=== PATIENT | male | born 1965 | race Caucasian/White ===

== ENCOUNTER 2016-10-05 07:32 | Day surgery (SDC) | payer BC ==
[2016-10-02 11:26] VITALS: BMI 27.8
[~2016-10-05 07:32] MED LIST: LACTATED RINGERS 1,000 ML IV SCH
[2016-10-05 07:48] VITALS: TEMP 98.4
[2016-10-05] MEDS ORDERED: LIDOCAINE 1% 20 ML VIAL (10MG/ML) FOR IV START INTRADERMA ONE (07:58)
[2016-10-05] MEDS ORDERED: PROPOFOL 10 MG/ML 20 ML VIAL IV ONE (08:30)
[2016-10-05] MEDS ORDERED: LIDOCAINE 1% INJ 10MG/ML (20 ML MDV) ONE (08:30)
--- NOTE | 2016-10-05 08:50 | P.GSHP ---
History of Present Illness H&P Date: 10/05/16 Chief Complaint: GERD This a 51-year-old male who presents today for EGD. He's had issues with reflux. Patient has reflux of liquid stool back the throat. He's had GERD for several years. - Constitutional Constitutional: Reports as per HPI Past Medical History Past Medical History: GERD/Reflux, Hyperlipidemia, Hypertension Additional Past Medical History / Comment(s): "chest flutter" History of Any Multi-Drug Resistant Organisms: None Reported Past Surgical History: Orthopedic Surgery Additional Past Surgical History / Comment(s): rt ankle tendon repair Past Anesthesia/Blood Transfusion Reactions: No Reported Reaction Smoking Status: Never smoker Past Alcohol Use History: Occasional Past Drug Use History: None Reported - Past Family History Father Family Medical History: Cancer Additional Family Medical History / Comment(s): prostate Medications and Allergies Home Medications Medication Instructions Recorded Confirmed Type Aspirin [Adult Low Dose Aspirin EC] 81 mg PO DAILY 10/02/16 10/05/16 History Cholecalciferol [Vitamin D3] 1,000 unit PO DAILY 10/02/16 10/05/16 History amLODIPine/ATORVASTATIN [Caduet 5 1 tab PO HS 10/02/16 10/05/16 History mg-10 mg Tablet] Allergies Allergy/AdvReac Type Severity Reaction Status Date / Time No Known Allergies Allergy Verified 10/05/16 07:43 Surgical - Exam Vital Signs Temp Pulse Resp BP Pulse Ox 98.4 F 89 16 142/90 97 10/05/16 07:38 10/05/16 07:38 10/05/16 07:38 10/05/16 07:38 10/05/16 07:38 - General well developed, no distress - Eyes PERRL - ENT normal pinna - Neck no masses - Respiratory normal expansion - Cardiovascular Rhythm: regular - Abdomen Abdomen: soft, non tender Assessment and Plan Plan: GERD. We will perform EGD
--- NOTE | 2016-10-05 08:57 | P.OP ---
Date of Procedure: 10/05/16 Preoperative Diagnosis: GERD Postoperative Diagnosis: Antral gastritis No evidence of hiatal hernia Esophagitis Procedure(s) Performed: EGD Anesthesia: MAC Surgeon: Kenji Ta Pathology: other (Antrum, esophagus) Condition: stable Disposition: PACU Description of Procedure: The patient's placed on the endoscopy table in the lateral position. She received IV sedation. The gastroscope some placed oropharynx passed into the esophagus and stomach. The scope was then placed through the pylorus. The first and second portion of duodenum. Normal. Scope was then brought back the antrum and this appeared mildly inflamed. A biopsies was performed. The scope was unretroflexed and remainder of the stomach appeared normal. The GE junction was at 40 cm. There was no significant hiatal hernia. The distal esophagus appeared inflamed and this area is biopsied the proximal esophagus appeared normal. Scope was withdrawn for patient.
[2016-10-05 09:04] VITALS: RESP 18
[2016-10-05 09:19] VITALS: BP 140/85; PULSE 77
== END 2016-10-05 09:35 | disposition home or self-care (01) ==
LOC: ORWHC2ENDO 07:32
PROVIDERS: ATTEND Surgery
DX: K21.0 Gastro-esophageal reflux disease with esophagitis (principal); I10 Essential (primary) hypertension; E78.5 Hyperlipidemia, unspecified; Z79.82 Long term (current) use of aspirin; Z79.899 Other long term (current) drug therapy
CPT/HCPCS: 88305; 88342; 43239; J2001; J2704

== ENCOUNTER → 2024-05-27 | Outpatient (CLI) | payer BC ==
[2024-05-27 15:09] LABS: HCT 45.3 % (39.6-50.0); MCH 30.4 pg (27.0-32.0); MCHC 33.1 g/dL (32.0-37.0); MCV 91.7 FL (80.0-97.0); Mean Platelet Volume 10.3 FL (9.5-12.2); NRBC Per 100 WBC 0 X 10*3/uL (0.00-0.01); Platelet Count 218 X 10*3/uL (140-440); RBC 4.94 X 10*6/uL (4.40-5.60); RDW 12.3 % (11.5-14.5)
== END | disposition home or self-care (01) ==
LOC: LABPAT 07:58
PROVIDERS: ATTEND Surgery
DX: Z01.812 Encounter for preprocedural laboratory examination (principal); K42.9 Umbilical hernia without obstruction or gangrene; K40.90 Unilateral inguinal hernia, without obstruction or gangrene, not specified as recurrent
CPT/HCPCS: 85027

== ENCOUNTER 2024-05-28 10:42 | Day surgery (SDC) | payer BC ==
[2024-05-26 09:24] VITALS: BMI 27.8
[~2024-05-28 10:42] MED LIST changes: +HYDROmorphone 0.5 MG/0.5 ML SYRINGE IVP PRN; -LACTATED RINGERS 1,000 ML IV SCH; +LIDOCAINE 1% (10MG/ML) FOR IV START INTRADERMA PRN; +MIDAZOLAM 2 MG/2 ML VIAL IV PRN; +fentaNYL (PF) 50 MCG/ML 2 ML AMP IVP PRN
[2024-05-28] MEDS: IV FLUID CONTINUATION 1,000 ML IV ONE (11:13)
[2024-05-28 11:15] VITALS: TEMP 97
[2024-05-28] MEDS: ONDANSETRON 4 MG/2 ML VIAL IVP ONE (11:28)
[2024-05-28] MEDS: DEXAMETHASONE SOD PHOSPHATE 4 MG/ML 1 ML VIAL IV ONE (11:29)
[2024-05-28] MEDS: LACTATED RINGERS 1,000 ML IV SCH (11:29)
[2024-05-28] MEDS: FAMOTIDINE 20 MG/2 ML VIAL IV STA (11:30)
[2024-05-28] MEDS ORDERED: fentaNYL (PF) 50 MCG/ML 2 ML AMP ONE (12:04)
[2024-05-28] MEDS ORDERED: SUCCINYLCHOLINE CHLORIDE 200 MG/10 ML VIAL IV ONE (12:04)
[2024-05-28] MEDS ORDERED: NEOSTIGMINE 1 MG/ML 10 ML VIAL ONE (12:04)
[2024-05-28] MEDS ORDERED: KETOROLAC 15 MG/ML 1 ML VIAL ONE (12:04)
[2024-05-28] MEDS ORDERED: LIDOCAINE 1% INJ 10MG/ML (20 ML MDV) ONE (12:04)
[2024-05-28] MEDS ORDERED: KETAMINE HCL IN 0.9 % NACL 50 MG/5 ML SYRINGE ONE (12:04)
[2024-05-28] MEDS ORDERED: PROPOFOL 10 MG/ML 20 ML VIAL IV ONE (12:04)
[2024-05-28] MEDS ORDERED: GLYCOPYRROLATE 0.2 MG/ML 2 ML VIAL ONE (12:04)
[2024-05-28] MEDS ORDERED: ROCURONIUM 10 MG/ML (5 ML VIAL) IV ONE (12:04)
[2024-05-28] MEDS ORDERED: MIDAZOLAM 2 MG/2 ML VIAL ONE (12:04)
[2024-05-28] MEDS: LIDOCAINE 1%-EPI 1:100,000 20 ML VIAL SQ ONE (12:38)
[2024-05-28 15:07] VITALS: RESP 18
[2024-05-28 15:39] VITALS: BP 146/88; PULSE 81
--- NOTE | 2024-05-28 21:13 | P.OP ---
Date of Procedure: 05/28/24 Preoperative Diagnosis: Left inguinal hernia Umbilical hernia Postoperative Diagnosis: Left inguinal hernia Umbilical hernia Procedure(s) Performed: Robotic left inguinal hernia repair Open umbilical hernia repair, primary Implants: ProGrip inguinal mesh Anesthesia: GUI Surgeon: Ana Rush Pathology: none sent Condition: stable Disposition: same day Indications for Procedure: 58-year-old male presented to the surgery clinic with complaint of left groin bulge and umbilical bulge. He is found to have left inguinal hernia and umbilical hernia. He is having increased discomfort and increased size of the hernia. Plan is for robotic left inguinal hernia repair with open umbilical hernia repair. Risks, benefits and alternatives were provided to the patient. All questions answered. Operative Findings: Left inguinal hernia containing sigmoid colon Umbilical hernia, measuring 1 x 1 cm Description of Procedure: The patient was brought to the operating suite and placed in supine position. After general endotracheal anesthesia was induced, arms were tucked to the sides bilaterally and all pressure points were padded. SCDs were also placed in bilateral lower extremities. Timeout was performed. A supraumbilical incision was made approximately 20 cm superior to the pubic symphysis. The abdomen was then entered through the umbilical defect of the hernia that was noted. This hernia measured 1 x 1 cm and an 8 mm trocar was placed. Pneumoperitoneum was achieved. 2 additional incisions were made approximately 11 cm lateral to the supraumbilical incision and 8 mm trocars were placed. The patient was then placed in Trendelenburg position and the hernia site was clearly visualized on the left side. This was noted as an indirect inguinal hernia containing sigmoid colon. The robot was then docked appropriately. Incision was then made just lateral to the medial umbilical ligament on the left side with the monopolar scissors and peritoneal flap was created and was then taken down towards Martin's ligament. The flap was then extended laterally. Attention was then turned to the indirect inguinal hernia. The sac was then freed from the cord all while preserving the cord structures. At this point the indirect hernia was reduced. Once the entire space was appropriately dissected out, we brought the laparoscopic anatomic ProGrip mesh and unrolled it over the hernia site. Once appropriately in place the peritoneal flap was closed using a running 2 OV lock suture. Once this was completed we removed all the robotic instruments and undocked the robot. The supraumbilical hernia site was then closed under direct visualization using an 0 Vicryl suture and Socrates-Simon device. All skin incisions were then closed with 4-0 Vicryl subcuticular suture. Sterile dressing was applied. The patient was awakened and taken to postanesthesia care unit in stable condition.
== END 2024-05-28 16:09 | disposition home or self-care (01) ==
LOC: OR 10:42
PROVIDERS: ATTEND Surgery
DX: K40.90 Unilateral inguinal hernia, without obstruction or gangrene, not specified as recurrent (principal); K42.9 Umbilical hernia without obstruction or gangrene; I10 Essential (primary) hypertension; K21.9 Gastro-esophageal reflux disease without esophagitis; Z79.899 Other long term (current) drug therapy; Z98.890 Other specified postprocedural states
CPT/HCPCS: 49591; 49650; S2900